=== PATIENT | male | born 1945 | race Caucasian/White ===

== ENCOUNTER 2018-07-31 13:16 | Emergency (ER) | payer MEDICARE, OTHER ==
[2018-07-31] MEDS ORDERED: Diphtheria,Pertussis(Acell),Tetanus Vaccine 0.5 ML SDV IM ONE (13:25)
[2018-07-31] MEDS ORDERED: Lidocaine 2% 20 ML MDV SUBCUT ONE (14:00)
--- NOTE | 2018-07-31 14:07 | EDM.PDOC ---
ED HPI GENERAL MEDICAL PROBLEM - General Chief Complaint: Upper Extremity Injury/Pain Stated Complaint: CUT TWO FINGERS ON RT HAND Time Seen by Provider: 07/31/18 14:01 Source of Information: Reports: Patient History Limitations: Reports: No Limitations - History of Present Illness INITIAL COMMENTS - FREE TEXT/NARRATIVE: 72 yo male dropped a pontoon on his R long finger shortly before arrival. He has a lesser injury also on the R 4th finger. He is not UTD on his tetanus. Here with his . Onset: Today Onset Date: 07/31/18 Onset Time: 12:30 Duration: Minutes:, Constant Location: Reports: Upper Extremity, Right Quality: Reports: Dull Severity: Mild Improves with: Reports: Rest Worsens with: Reports: Movement Context: Reports: Trauma Associated Symptoms: Reports: No Other Symptoms Treatments GLASS CLEANER: Reports: Other (see below) (Dressings applied by .) Right Hand Pain Score (Numeric/FACES): 2 - Related Data Allergies Allergy/AdvReac Type Severity Reaction Status Date / Time No Known Allergies Allergy Verified 07/31/18 13:47 Home Meds: Home Meds cephALEXin [Cephalexin] 500 mg PO TID 07/31/18 [History] Past Medical History HEENT History: Reports: Impaired Vision Gastrointestinal History: Reports: Hemorrhoids Oncologic (Cancer) History: Reports: Basal Cell Carcinoma, Prostate - Infectious Disease History Infectious Disease History: Reports: Chicken Pox, Mumps - Past Surgical History Head Surgeries/Procedures: Reports: None GI Surgical History: Reports: Cholecystectomy, Colonoscopy Male Surgical History: Reports: Prostatectomy Oncologic Surgical History: Reports: None Dermatological Surgical History: Reports: Skin Biopsy Social & Family History - Tobacco Use Smoking Status *Q: Former Smoker Years of Tobacco use: 30 Used Tobacco, but Quit: Yes Month/Year Tobacco Last Used: 1884 Second Hand Smoke Exposure: No - Caffeine Use Caffeine Use: Reports: Coffee - Alcohol Use Days Per Week of Alcohol Use: 7 Number of Drinks Per Day: 2 Total Drinks Per Week: 14 - Recreational Drug Use Recreational Drug Use: No Review of Systems - Review of Systems Review Of Systems: See Below Constitutional: Reports: No Symptoms Musculoskeletal: Reports: Other (full ROM still present.) Skin: Reports: Wound (lacerations to the xavier side of the distal R 3rd and 4th fingers. ) Neurological: Reports: No Symptoms ED EXAM, GENERAL - Physical Exam Exam: See Below Exam Limited By: No Limitations General Appearance: Alert, WD/WN, No Apparent Distress Eye Exam: Bilateral Eye: Normal Inspection Ears: Normal External Exam, Normal Canal, Hearing Grossly Normal Ear Exam: Bilateral Ear: Auricle Normal, Canal Normal Nose: Normal Inspection, Normal Mucosa, No Blood Throat/Mouth: Normal Voice, No Airway Compromise Head: Atraumatic, Normocephalic Neck: Normal Inspection Respiratory/Chest: No Respiratory Distress, No Accessory Muscle Use Cardiovascular: Regular Rate, Rhythm Extremities: Other (injuries to the R 3rd and 4th finger tips) Neurological: Alert, Oriented, CN II-XII Intact, Normal Cognition, No Motor/ Sensory Deficits Psychiatric: Normal Affect, Normal Mood Skin Exam: Warm, Dry, Normal Color, No Rash, Wound/Incision (flap laceration, full-thickness to the R distal 3rd finger, superficial partial thickness injury to the R 4th finger. No active bleeding. ) Lymphatic: No Adenopathy ED TRAUMA EXTREMITY PROCEDURES - Laceration/Wound Repair Right Anterior Distal Hand Lac/Wound Length In cm: 2.4 (R long finger) Appearance: Other (flap) Distal NVT: Neuro & Vascular Intact Anesthetic Type: Digital Local Anesthesia - Lidocaine (Xylocaine): 2% Plain Local Anesthetic Volume: 5cc Skin Prep: Saline Closed With: Sutures Suture Size: other (5-0) Suture Type: Nylon, Interrupted, Simple Drain Placement: No Sterile Dressing Applied: Nurse Tetanus Status Addressed: Yes Complications: No - Joint Reduction Pre-Procedure NV Status: Normal Post-Procedure NV Status: Normal - Endotracheal Intubation Pre-Oxygenation: Assisted with BVM, 100% FiO2 Confirmed By: CO2 Indicator, Bilateral Breath Sounds Tube Secured By: By Provider Course - Vital Signs Text/Narrative:: Minor debridement of the R 4th finger. The nail on the R 3rd finger was loose so I removed it in the ER. Last Recorded V/S: Last Vital Signs Temp 36.1 C 07/31/18 13:49 Pulse 60 07/31/18 13:49 Resp 16 07/31/18 13:49 BP 146/81 H 07/31/18 13:49 Pulse Ox 98 07/31/18 13:49 - Orders/Labs/Meds Orders: Active Orders 24 hr Category Date Time Status Vaccines to be Administered [RC] PER UNIT ROUTINE Care 07/31/18 13:25 Active Meds: Medications Discontinued Medications Generic Name Dose Route Start Last Admin Trade Name Erica PRN Reason Stop Dose Admin Diphtheria/Tetanus/Acell Pertussis 0.5 ml 07/31/18 13:25 07/31/18 14:08 Adacel IM 07/31/18 13:26 0.5 ml .ONCE ONE Administration Lidocaine HCl 10 ml 07/31/18 14:00 07/31/18 14:13 Xylocaine 2% SUBCUT 07/31/18 14:01 10 ml ONETIME ONE Administration - Radiology Interpretation Free Text/Narrative:: R 3rd finger X-ray-neg Departure - Departure Time of Disposition: 14:50 Disposition: Home, Self-Care 01 Condition: Good Clinical Impression: Finger laceration Qualifiers: Encounter type: initial encounter Finger: middle finger Damage to nail status: with damage Foreign body presence: without foreign body Laterality: right Qualified Code(s): S61.312A - Laceration without foreign body of right middle finger with damage to nail, initial encounter - Discharge Information *PRESCRIPTION DRUG MONITORING PROGRAM REVIEWED*: Not Applicable *COPY OF PRESCRIPTION DRUG MONITORING REPORT IN PATIENT GUNNER: Not Applicable Instructions: Laceration Care, Adult, [id number] Referrals: Wade Merritt MD [Primary Care Provider] - Forms: ED Department Discharge Additional Instructions: Clean fingers twice daily with soap and water. Dry. Apply antibiotic ointment and a new dressing. Keep wound clean for at least 3 days. Take acetaminophen and /or ibuprofen for pain relief. Recheck for signs of infection. Stitches out in the clinic in 10-11 days, call for an appt. Elevate today to reduce bleeding. - My Orders Last 24 Hours: My Active Orders 07/31/18 13:25 Vaccines to be Administered [RC] PER UNIT ROUTINE - Assessment/Plan Last 24 Hours: My Active Orders 07/31/18 13:25 Vaccines to be Administered [RC] PER UNIT ROUTINE
--- NOTE | 2018-07-31 14:31 | CR ---
Fingers Third Digit Rt F7 CLINICAL HISTORY: Injury FINDINGS: No fracture seen. There is narrowing of the interphalangeal joints with moderate narrowing of the second through fourth MCP joints. There are some periarticular erosions. There is mild ulnar d eviation IMPRESSION: Soft tissue swelling with no fracture Degenerative changes in the hand articulations. Some findings are suggestive of rheumatoid arthritis or variant. Clinical correlation necessary
== END 2018-07-31 15:11 | disposition home or self-care (01) ==
LOC: JP.ED 13:16
DX: S61.312A Laceration without foreign body of right middle finger with damage to nail, initial encounter (principal); Z23 Encounter for immunization; Z87.891 Personal history of nicotine dependence; W20.8XXA Other cause of strike by thrown, projected or falling object, initial encounter
CPT/HCPCS: 12001; 73140-26-F7; 73140-F7; 90471; 90715; 99284-25

== ENCOUNTER 2018-11-07 07:08 | Day surgery (SDC) | payer MEDICARE, OTHER ==
[2018-11-07] MEDS ORDERED: Propofol 200 MG/20 ML SDV ONE (07:21)
[2018-11-07] MEDS ORDERED: fentaNYL 100 MCG/2 ML SDV ONE (07:21)
[2018-11-07] MEDS ORDERED: Midazolam 1 MG/ML 2 ML SDV ONE (07:21)
[2018-11-07] MEDS ORDERED: Sodium Chloride 0.9% 1,000 ML IV SCH (08:00)
--- NOTE | 2018-11-07 10:50 | OR ---
DATE OF PROCEDURE: 11/07/2018 PROCEDURE: Colonoscopy. FINDINGS: Rectal polyp, 1 cm, completely removed using hot snare. COMPLICATIONS: None. FLOOR FINISHER: None. PREOPERATIVE DIAGNOSIS: Screening colonoscopy. POSTOPERATIVE DIAGNOSIS: Screening colonoscopy. RISKS: Risks, benefits, alternatives, and limitations including, but not limited to infection, bleeding, and perforation were explained to patient, who wished to proceed. PROCEDURE IN DETAIL: The patient was placed in left lateral decubitus position. Digital rectal exam was performed without abnormality, except for small external hemorrhoids. The scope was introduced and advanced atraumatically to the ileocecal valve. A photo was taken. The scope was brought back through the ascending, transverse, descending colon, and retroflexed. The aforementioned polyp was identified and completely removed. No other abnormalities. No diverticulosis. No old or new blood. The prep was moderately acceptable. Approximately 90% luminal surface could be seen. The patient tolerated the procedure well. Spike Galeas MD /[id number]
== END 2018-11-07 10:15 | disposition home or self-care (01) ==
LOC: JP.SDS 07:08
PROVIDERS: ATTEND Surgery
DX: Z12.11 Encounter for screening for malignant neoplasm of colon (principal); D12.8 Benign neoplasm of rectum; K64.4 Residual hemorrhoidal skin tags; Z87.891 Personal history of nicotine dependence
CPT/HCPCS: 45385; 88305; J2250; J2704; J3010; J7030

== ENCOUNTER 2021-12-02 06:22 | Day surgery (SDC) | payer MEDICARE, OTHER ==
[2021-12-02] MEDS ORDERED: Sodium Chloride 0.9% 1,000 ML IV SCH (07:00)
[2021-12-02 07:16] LABS: CORONAVIRUS COVID-19 NAA NEGATIVE (NEGATIVE)
[2021-12-02] MEDS ORDERED: Propofol 200 MG/20 ML SDV ONE (07:16)
[2021-12-02] MEDS ORDERED: fentaNYL 100 MCG/2 ML SDV ONE (07:17)
== END 2021-12-02 09:10 | disposition home or self-care (01) ==
LOC: JP.SDS 06:22
PROVIDERS: ATTEND Surgery
DX: Z12.11 Encounter for screening for malignant neoplasm of colon (principal); K63.5 Polyp of colon; K57.30 Diverticulosis of large intestine without perforation or abscess without bleeding; Z01.812 Encounter for preprocedural laboratory examination; Z20.822 Contact with and (suspected) exposure to COVID-19
CPT/HCPCS: 0241U; 45380; J2704; J3010; J7030; 88305